=== PATIENT | female | born 1955 | race Caucasian/White ===

== ENCOUNTER 2023-12-21 12:17 | Inpatient (IN) ==
[2023-12-21] MEDS ORDERED: IOPAMIDOL 100 ML BOTTLE IV ONE (12:18)
[2023-12-21] MEDS: morphine 2 MG/ML VIAL IV PRN (13:11)
[2023-12-21] MEDS: ONDANSETRON 4 MG/2 ML VIAL IV ONE (13:11)
[2023-12-21 13:28] LABS: Basophils # (Auto) 0.02 K/mcL (0.00-0.30); Basophils % (Auto) 0.2 % (0.0-2.0); Eosinophils # (Auto) 0.06 K/mcL (0.00-0.70); Eosinophils % (Auto) 0.6 % (0.0-7.0); Hematocrit 54.9 % (34.1-44.9); Lymphocytes # (Auto) 2.45 K/mcL (1.50-4.80); Lymphocytes % (Auto) 23.2 % (15.5-49.0); Mean Cell Volume 81.5 fL (80.0-100.0); Mean Platelet Volume 10.1 fL (8.8-12.5); Monocytes # (Auto) 0.98 K/mcL (0.10-0.90); Monocytes % (Auto) 9.3 % (1.0-12.0); Neutrophils % (Auto) 66.3 % (38.0-78.0); Platelet Count 253 K/mcL (140-440); RBC 6.74 M/mcL (3.59-5.38); Red Cell Distribution Width 17.9 % (11.5-14.5); WBC 10.6 K/mcL (4.5-11.0)
[2023-12-21 13:34] LABS: ALT/SGPT 9 U/L (<40); AST/SGOT 24 U/L (<32); Albumin 3.5 gm/dL (3.2-5.2); Albumin/Globulin Ratio 0.9 (1.0-2.3); Alkaline Phosphatase 116 U/L (39-117); Bilirubin,Total 0.5 mg/dL (0.1-1.0); Blood Urea Nitrogen 11 mg/dL (8-23); Calcium 9.8 mg/dL (8.6-10.4); Carbon Dioxide 20 mmol/L (22-30); Chloride 103 mmol/L (96-108); Globulin 4.1 gm/dL (2.2-3.7); Glomerular Filtration Rate 75; Glucose 128 mg/dL (70-105); Potassium 4.4 mmol/L (3.3-5.1); Sodium 135 mmol/L (133-145)
[2023-12-21 14:21] LABS: Appearance,Urine Slightly Cloudy (Clear); Bacteria,Urine Many /hpf (0); Bilirubin,Urine Negative (Negative); Color,Urine Yellow; Glucose,Urine (UA) Negative (Negative); Ketones,Urine Negative (Negative); Leukocyte Esterase,Urine Moderate /uL (Negative); Nitrate,Urine Positive (Negative); Protein,Urine Negative (Negative); Specific Gravity,Urine 1.015 (1.000-1.035); Urine Blood Small ery/mcL (Negative); Urine RBC 0 /hpf (0-3); Urine Squamous Epithelial Cell 8 /hpf (0-4); Urine WBC > 182 /hpf (0-4); Urobilinogen,Urine Normal
[2023-12-21] MEDS: 0.9 % SODIUM CHLORIDE 1,000 ML IV ONE (14:38)
[2023-12-21] MEDS: cefTRIAXone 1 GM VIAL IV ONE (14:47)
[2023-12-21] MEDS ORDERED: ONDANSETRON 4 MG/2 ML VIAL IV PRN (16:46)
[2023-12-21] MEDS ORDERED: POLYETHYLENE GLYCOL 3350 17 GM PACKET PO PRN (16:46)
[2023-12-21] MEDS ORDERED: MAGNESIUM SULFATE 2 GM/50 ML BAG IV PRN (16:46)
[2023-12-21] MEDS ORDERED: POTASSIUM CHLORIDE 20 MEQ TABLET PO PRN ×2 (16:46)
[2023-12-21] MEDS ORDERED: HYDROcodone/APAP 5/325MG TABLET PO PRN (16:46)
[2023-12-21] MEDS ORDERED: IPRATROPIUM/ALBUTEROL 3 ML AMPUL.NEB NEB PRN (16:46)
[2023-12-21] MEDS ORDERED: METOCLOPRAMIDE 10 MG/2 ML VIAL IV PRN (16:46)
[2023-12-21] MEDS ORDERED: ACETAMINOPHEN 160 MG/5 ML ORAL.SOL PO PRN (16:46)
[2023-12-21] MEDS ORDERED: SENNOSIDES 1 TABLET PO PRN (16:46)
[2023-12-21] MEDS ORDERED: ENALAPRILAT 1.25 MG/ML VIAL IV PRN (16:46)
[2023-12-21] MEDS ORDERED: POTASSIUM CHLORIDE 40 MEQ in DEXTROSE 5% IN WATER 500 ML IV PRN (16:46)
[2023-12-21] MEDS ORDERED: ACETAMINOPHEN 325 MG TABLET PO PRN (17:32)
[2023-12-21] MEDS: ENOXAPARIN 100 MG/ML SYRINGE SQ SCH (17:50)
[2023-12-21] MEDS ORDERED: FLEETS ADULT 1 DOSE ENEMA PR PRN (20:00)
[2023-12-21] MEDS: DOCUSATE SODIUM 100 MG CAPSULE PO SCH (21:09)
[2023-12-21] MEDS: ATORVASTATIN 10 MG TABLET PO SCH (21:09)
[2023-12-22] MEDS: hydrALAZINE 20 MG/ML VIAL IV PRN (02:14)
[2023-12-22] MEDS: morphine 4 MG/ML VIAL IV PRN (03:17)
[2023-12-22] MEDS: METOPROLOL TARTRATE 5 MG/5 ML VIAL IV PRN (04:02)
[2023-12-22] MEDS: METOPROLOL TARTRATE 5 MG/5 ML VIAL IV ONE (04:26)
[2023-12-22 06:33] LABS: ALT/SGPT 10 U/L (<40); AST/SGOT 22 U/L (<32); Albumin 3.4 gm/dL (3.2-5.2); Albumin/Globulin Ratio 0.8 (1.0-2.3); Alkaline Phosphatase 118 U/L (39-117); Bilirubin,Direct < 0.2 mg/dL (0-0.3); Bilirubin,Total 0.5 mg/dL (0.1-1.0); Blood Urea Nitrogen 11 mg/dL (8-23); Calcium 9.8 mg/dL (8.6-10.4); Carbon Dioxide 22 mmol/L (22-30); Chloride 105 mmol/L (96-108); Globulin 4.1 gm/dL (2.2-3.7); Glomerular Filtration Rate 65; Glucose 130 mg/dL (70-105); Lactate Dehydrogenase 219 U/L (135-225); Phosphorous 2.4 mg/dL (2.5-4.5); Potassium 3.9 mmol/L (3.3-5.1); Sodium 139 mmol/L (133-145); Triglycerides 115 mg/dL (<150); Uric Acid 5.5 mg/dL (2.5-8.0)
[2023-12-22 06:46] LABS: Basophils # (Auto) 0.02 K/mcL (0.00-0.30); Basophils % (Auto) 0.2 % (0.0-2.0); Eosinophils # (Auto) 0.08 K/mcL (0.00-0.70); Eosinophils % (Auto) 0.8 % (0.0-7.0); Hematocrit 56.5 % (34.1-44.9); Hemoglobin 17.7 g/dL (11.2-15.7); Lymphocytes # (Auto) 2.97 K/mcL (1.50-4.80); Lymphocytes % (Auto) 28.6 % (15.5-49.0); Mean Cell Volume 81.2 fL (80.0-100.0); Mean Corpuscular HGB Conc 31.3 g/dL (31.0-36.0); Monocytes % (Auto) 9.6 % (1.0-12.0); Neutrophils % (Auto) 60.4 % (38.0-78.0); Platelet Count 299 K/mcL (140-440); RBC 6.96 M/mcL (3.59-5.38); Red Cell Distribution Width 17.9 % (11.5-14.5); WBC 10.4 K/mcL (4.5-11.0)
[2023-12-22] MEDS: LEVOTHYROXINE 100 MCG TABLET PO SCH (07:39)
[2023-12-22] MEDS: DULoxetine 30 MG CAPSULE PO SCH (08:39)
[2023-12-22] MEDS: DIVALPROEX SODIUM 250 MG TABLET PO SCH (08:39)
[2023-12-22] MEDS: ENOXAPARIN 100 MG/ML SYRINGE SQ SCH (08:41)
[2023-12-22] MEDS ORDERED: IOPAMIDOL 100 ML BOTTLE IV ONE (09:26)
[2023-12-22] MEDS: cefTRIAXone 1 GM VIAL IV SCH (09:47)
[2023-12-22] MEDS: OLANZapine 5 MG TABLET PO PRN (12:39)
[2023-12-22] MEDS: MELATONIN 3 MG TABLET PO PRN (20:09)
[2023-12-22] MEDS: oxyCODONE/APAP 5/325MG TABLET PO PRN (20:09)
[2023-12-23 05:48] LABS: Basophils # (Auto) 0.02 K/mcL (0.00-0.30); Basophils % (Auto) 0.2 % (0.0-2.0); Eosinophils # (Auto) 0.04 K/mcL (0.00-0.70); Eosinophils % (Auto) 0.4 % (0.0-7.0); Hemoglobin 15.9 g/dL (11.2-15.7); Lymphocytes # (Auto) 3.02 K/mcL (1.50-4.80); Lymphocytes % (Auto) 29.3 % (15.5-49.0); Mean Cell Volume 80.4 fL (80.0-100.0); Mean Corpuscular HGB Conc 31.2 g/dL (31.0-36.0); Mean Platelet Volume 9.6 fL (8.8-12.5); Monocytes # (Auto) 1.04 K/mcL (0.10-0.90); Monocytes % (Auto) 10.1 % (1.0-12.0); Neutrophils % (Auto) 59.8 % (38.0-78.0); Platelet Count 269 K/mcL (140-440); RBC 6.34 M/mcL (3.59-5.38); Red Cell Distribution Width 17.6 % (11.5-14.5); WBC 10.3 K/mcL (4.5-11.0)
[2023-12-23 06:23] LABS: ALT/SGPT 10 U/L (<40); AST/SGOT 14 U/L (<32); Albumin 3.2 gm/dL (3.2-5.2); Alkaline Phosphatase 99 U/L (39-117); Bilirubin,Direct < 0.2 mg/dL (0-0.3); Bilirubin,Total 0.4 mg/dL (0.1-1.0); Blood Urea Nitrogen 14 mg/dL (8-23); Calcium 9.4 mg/dL (8.6-10.4); Carbon Dioxide 22 mmol/L (22-30); Chloride 106 mmol/L (96-108); Globulin 3.2 gm/dL (2.2-3.7); Glomerular Filtration Rate 65; Glucose 120 mg/dL (70-105); Lactate Dehydrogenase 164 U/L (135-225); Phosphorous 3.1 mg/dL (2.5-4.5); Potassium 3.8 mmol/L (3.3-5.1); Sodium 138 mmol/L (133-145); Triglycerides 88 mg/dL (<150); Uric Acid 5.5 mg/dL (2.5-8.0)
[2023-12-23] MEDS: DIVALPROEX SODIUM 250 MG TABLET PO SCH (21:42)
== END 2023-12-24 13:10 | DRG 689 ==
LOC: ED 12:17 → MEDSUR 16:09
PROVIDERS: ADMIT Internal Medicine; ATTEND Internal Medicine